=== PATIENT | female | born 1990 | race Caucasian/White ===

== ENCOUNTER → 2021-02-13 | Outpatient (CLI) | payer BC, MEDICAID ==
[~2021-02-13] MED LIST: AMOXICILLIN 50500 MG PO; PRENATAL1 TA1 PO
[2021-02-13 13:29] LABS: BASO # 0.04 K/mm3 (0.02-0.10); EOS # 0.28 K/mm3 (0.04-0.40); EOS % 2.6 % (1.0-5.0); HEMOGLOBIN 12.5 g/dL (12.5-16.0); LYMPH# 3.19 K/mm3 (1.50-4.00); MEAN CELL VOLUME 79 fl (78-100); MEAN CORPUSCULAR HEMOGLOBIN 25 pg (27-31); MEAN CORPUSCULAR HGB CONC 31 g/dL (33-37); MEAN PLATELET VOLUME 10.4 fl (7.4-10.4); MONO # 0.97 K/mm3 (0.20-0.80); NEU # 6.42 K/mm3 (1.40-6.50); PLATELET COUNT 485 K/mm3 (130-400); RED BLOOD COUNT 5.08 M/mm3 (4.10-5.30); RED CELL DISTRIBUTION WIDTH 13.8 % (11.5-14.5); WHITE BLOOD COUNT 10.9 K/mm3 (4.8-10.8)
[2021-02-13 13:32] LABS: ALBUMIN 4.5 g/dL (3.5-5.0)
[2021-02-13 13:33] LABS: POTASSIUM 3.7 mmol/L (3.5-5.1)
[2021-02-13 13:35] LABS: TOTAL PROTEIN 8.5 g/dL (6.4-8.3)
[2021-02-13 13:37] LABS: TOTAL BILIRUBIN 0.4 mg/dL (0.2-1.2)
[2021-02-13 14:46] LABS: D-DIMER 0.42 mg/L FEU (0.15-0.50)
== END ==
LOC: LAB 13:08
PROVIDERS: Nurse Practitioner Family
DX: U07.1 COVID-19 (principal)

== ENCOUNTER 2023-10-23 08:30 | Emergency (ER) | payer MEDICAID ==
[~2023-10-23] VITALS: Ht 144.8 cm; Wt 65.9 kg
[2023-10-23] MEDS ORDERED: Ketorolac 30 MG/ML VIAL IV ONE (09:00)
[2023-10-23] MEDS ORDERED: NS 1,000 ML IV ONE (09:00)
[2023-10-23] MEDS ORDERED: Orphenadrine 60 MG/2ML AMP IV ONE (09:00)
[2023-10-23 09:03] LABS: BASO # 0.04 K/mm3 (0.02-0.10); EOS # 1.34 K/mm3 (0.04-0.40); EOS % 7.8 % (1.0-5.0); HEMATOCRIT 44.9 % (37.0-47.0); HEMOGLOBIN 14.5 g/dL (12.5-16.0); LYMPH# 2.69 K/mm3 (1.50-4.00); MEAN CELL VOLUME 82 fl (78-100); MEAN CORPUSCULAR HEMOGLOBIN 26 pg (27-31); MEAN CORPUSCULAR HGB CONC 32 g/dL (33-37); MEAN PLATELET VOLUME 10.3 fl (7.4-10.4); MONO # 1.01 K/mm3 (0.20-0.80); NEU # 12.14 K/mm3 (1.40-6.50); PLATELET COUNT 394 K/mm3 (130-400); RED BLOOD COUNT 5.51 M/mm3 (4.10-5.30); WHITE BLOOD COUNT 17.3 K/mm3 (4.8-10.8)
[2023-10-23] MEDS ORDERED: SERTRALINE50 MG PO (09:13)
[2023-10-23 09:14] LABS: ALBUMIN 4.8 g/dL (3.5-5.0); SODIUM 139 mmol/L (136-145)
[2023-10-23 09:15] LABS: CALCIUM 10.7 mg/dL (8.3-10.5)
[2023-10-23 09:17] LABS: GLUCOSE 119 mg/dL (65-105); TOTAL PROTEIN 8.6 g/dL (6.4-8.3)
[2023-10-23 09:18] LABS: CARBON DIOXIDE 23 mmol/L (22-29); TOTAL BILIRUBIN 0.7 mg/dL (0.2-1.2)
[2023-10-23 09:22] LABS: AST-SGOT 29 U/L (5-34)
[2023-10-23 09:23] LABS: ALT/SGPT 34 U/L (0-55)
[2023-10-23 09:30] LABS: TROPONIN-I < 0.030 ng/mL (0.00-0.033)
[2023-10-23] MEDS ORDERED: oxyCODONE/Acetaminophen 10-325 MG TAB PO ONE (09:45)
[2023-10-23 10:04] LABS: PH-URINE 5.5 (5.0 - 8.0); URINE APPEARANCE SLIGHTLY CLOUDY (CLEAR); URINE BILIRUBIN NEGATIVE (NEGATIVE); URINE BLOOD TRACE (NEGATIVE); URINE COLOR YELLOW (YELLOW); URINE GLUCOSE NEGATIVE (NEGATIVE); URINE KETONE NEGATIVE (NEGATIVE); URINE LEUKOCYTE ESTERASE NEGATIVE (NEGATIVE); URINE NITRATE NEGATIVE (NEGATIVE); URINE PROTEIN(semi-quant) NEGATIVE (NEGATIVE)
[2023-10-23] MEDS ORDERED: cefTRIAXone 1 G in Water For Injection,Sterile 10 ML IV ONE (10:30)
[2023-10-23] MEDS ORDERED: BACTRIM DS TAB1 EACH PO (10:44)
[2023-10-23 10:54] VITALS: BP 110/64
== END 2023-10-23 10:51 | disposition home or self-care (01) ==
LOC: ED 08:30
PROVIDERS: Family Medicine
DX: M25.511 Pain in right shoulder (principal); B34.9 Viral infection, unspecified; M54.2 Cervicalgia; R07.9 Chest pain, unspecified
CPT/HCPCS: J0696; J1885; J7030

== ENCOUNTER 2023-10-26 11:49 | Emergency (ER) | payer MEDICAID ==
[~2023-10-26] VITALS: Ht 144.8 cm; Wt 65.2 kg
[~2023-10-26 11:49] MED LIST changes: +BACTRIM DS TAB1 EACH PO; +SERTRALINE50 MG PO
[2023-10-26] MEDS ORDERED: SEPTRA DS 8001 TAB (12:02)
[2023-10-26] MEDS ORDERED: ACETAMINOPHEN-H1 TA2 PO (12:03)
[2023-10-26] MEDS ORDERED: Ketorolac 30 MG/ML VIAL IM ONE (13:00)
[2023-10-26 13:19] LABS: BASO # 0.02 K/mm3 (0.02-0.10); EOS # 0.92 K/mm3 (0.04-0.40); EOS % 11.7 % (1.0-5.0); HEMATOCRIT 40.9 % (37.0-47.0); HEMOGLOBIN 13.2 g/dL (12.5-16.0); LYMPH# 2.12 K/mm3 (1.50-4.00); MEAN CELL VOLUME 82 fl (78-100); MEAN CORPUSCULAR HEMOGLOBIN 27 pg (27-31); MEAN CORPUSCULAR HGB CONC 32 g/dL (33-37); MEAN PLATELET VOLUME 10.2 fl (7.4-10.4); MONO # 0.72 K/mm3 (0.20-0.80); NEU # 4.04 K/mm3 (1.40-6.50); PLATELET COUNT 392 K/mm3 (130-400); RED BLOOD COUNT 4.99 M/mm3 (4.10-5.30); WHITE BLOOD COUNT 7.8 K/mm3 (4.8-10.8)
[2023-10-26] MEDS ORDERED: KETOROLAC10 MG PO (14:37)
[2023-10-26] MEDS ORDERED: CYCLOBENZAPRINE10 M1 PO (14:37)
[2023-10-26 14:45] VITALS: BP 119/76
== END 2023-10-26 15:07 | disposition home or self-care (01) ==
LOC: ED 11:49
PROVIDERS: Family Medicine
DX: M54.2 Cervicalgia (principal); M25.511 Pain in right shoulder
CPT/HCPCS: J1885

== ENCOUNTER → 2023-12-30 | Outpatient (REF) | payer MEDICAID ==
[~2023-12-30] MED LIST changes: +ACETAMINOPHEN-H1 TA2 PO; +CYCLOBENZAPRINE10 M1 PO; +KETOROLAC10 MG PO; +SEPTRA DS 8001 TAB
== END ==
LOC: LAB 08:30
DX: R05.9 Cough, unspecified (principal); Z20.822 Contact with and (suspected) exposure to COVID-19